=== PATIENT | female | born 1960 | race Caucasian/White ===

== ENCOUNTER → 2016-04-26 | Outpatient (CLI) | payer OTHER ==
[2016-04-26 11:35] LABS: AUTOMATED NEUTROPHIL # 3.5 TH/MM3 (1.8-7.7); BASOPHIL % 0.4 % (0.0-2.0); EOSINOPHIL # 0.1 TH/MM3 (0-0.4); EOSINOPHIL % 2.1 % (0.0-4.0); HEMATOCRIT 43.2 % (35.0-46.0); HEMO FLAGS DIFF FINAL; LYMPH % 32.1 % (9.0-44.0); LYMPHOCYTE # 1.9 TH/MM3 (1.0-4.8); MEAN CELL VOLUME 85.4 FL (80.0-100.0); MEAN CORPUSCULAR HEMOGLOBIN 29.5 PG (27.0-34.0); MEAN CORPUSCULAR HGB CONC 34.5 % (32.0-36.0); MONO % 5.6 % (0.0-8.0); NEUT % 59.8 % (16.0-70.0); PLATELET COUNT 240 TH/MM3 (150-450); RED BLOOD COUNT 5.06 MIL/MM3 (4.00-5.30); RED CELL DISTRIBUTION WIDTH 12.8 % (11.6-17.2); WHITE BLOOD COUNT 5.8 TH/MM3 (4.0-11.0)
[2016-04-26 11:58] LABS: ALT (GPT) 20 U/L (10-53); ANION GAP 7 MEQ/L (5-15); AST (GOT) 17 U/L (15-37); BLOOD UREA NITROGEN 17 MG/DL (7-18); CHLORIDE 106 MEQ/L (98-107); GLOMERULAR FILTRATION RATE 82 ML/MIN (>89); GLUCOSE,FASTING 95 MG/DL (74-99); POTASSIUM 3.8 MEQ/L (3.5-5.1); SODIUM (NA) 142 MEQ/L (136-145)
[2016-04-26 12:08] LABS: ALKALINE PHOSPHATASE 66 U/L (45-117); HDL CHOLESTEROL 50.6 MG/DL (40.0-60.0); LDL CHOLESTEROL 140 MG/DL (0-99); TOTAL BILIRUBIN ADULT 0.7 MG/DL (0.2-1.0)
== END ==
LOC: ELAB 09:08
PROVIDERS: ATTEND Family Medicine
DX: N95.9 Unspecified menopausal and perimenopausal disorder (principal); R42 Dizziness and giddiness; K21.9 Gastro-esophageal reflux disease without esophagitis
CPT/HCPCS: 36415; 80053; 80061; 82652; 84443; 85025

== ENCOUNTER → 2016-10-25 | Outpatient (CLI) | payer OTHER ==
[2016-10-25 13:32] LABS: HEMATOCRIT 43.9 % (35.0-46.0); MEAN CELL VOLUME 86.5 FL (80.0-100.0); MEAN CORPUSCULAR HEMOGLOBIN 29.3 PG (27.0-34.0); MEAN CORPUSCULAR HGB CONC 33.9 % (32.0-36.0); PLATELET COUNT 242 TH/MM3 (150-450); RED BLOOD COUNT 5.07 MIL/MM3 (4.00-5.30); RED CELL DISTRIBUTION WIDTH 12.8 % (11.6-17.2); WHITE BLOOD COUNT 5.8 TH/MM3 (4.0-11.0)
[2016-10-25 13:35] LABS: REVIEW FLAG FINAL
[2016-10-25 13:56] LABS: ALT (GPT) 22 U/L (10-53); ANION GAP 6 MEQ/L (5-15); AST (GOT) 21 U/L (15-37); BICARBONATE 28.4 MEQ/L (21.0-32.0); CHLORIDE 108 MEQ/L (98-107); GLOMERULAR FILTRATION RATE 89 ML/MIN (>89); GLUCOSE,FASTING 84 MG/DL (74-99); POTASSIUM 3.9 MEQ/L (3.5-5.1); SODIUM (NA) 142 MEQ/L (136-145)
[2016-10-25 14:06] LABS: ALKALINE PHOSPHATASE 63 U/L (45-117); BLOOD UREA NITROGEN 15 MG/DL (7-18); HDL CHOLESTEROL 44.6 MG/DL (40.0-60.0); LDL CHOLESTEROL 105 MG/DL (0-99); TOTAL BILIRUBIN ADULT 0.6 MG/DL (0.2-1.0)
== END ==
LOC: PLAB 09:32
PROVIDERS: ATTEND Family Medicine
DX: N95.9 Unspecified menopausal and perimenopausal disorder (principal); R42 Dizziness and giddiness; K21.9 Gastro-esophageal reflux disease without esophagitis; J30.0 Vasomotor rhinitis; E78.2 Mixed hyperlipidemia
CPT/HCPCS: 80053; 80061; 82306; 84443; 85027

== ENCOUNTER → 2016-11-11 | Day surgery (SDC) | payer OTHER ==
[~2016-11-11] MED LIST: LACTATED RINGER'S 1000 ML INJ 1,000 ML ONE; PROPOFOL 500 MG/50 ML BTL IV ONE
--- NOTE | 2016-11-11 09:14 | GIPROC ---
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 PREP QUALITY: good PREP TYPE:Other: ESTIMATED BLOOD LOSS: None CONSENT: The patient understands the risks and benefits of the procedure and understands that these risks include, but are not limited to: sedation, allergic reaction, infection, perforation and/or bleeding. Alternative means of evaluation and treatment include, among others: physical exam, x-rays, and/or surgical intervention. The patient elects to proceed with this endoscopic procedure. medical equipment was checked for proper function. Hand hygiene and appropriate measures for infection prevention was taken. After the risks, benefits and alternatives of the procedure were thoroughly explained, Informed consent was verified, confirmed and timeout was successfully executed by the treatment team. A digital exam revealed external hemorrhoids The EC-3490Li ([id number] endoscope was introduced through the anus and advanced to the cecum, which was identified by both the appendix and ileocecal valve. The instrument was then slowly withdrawn as the colon was fully examined. COLON FINDINGS: Diminutive polyp sigmoid-biopsy. Retroflexed views revealed small internal hemorrhoids The scope was then completely withdrawn from the patient and the procedure terminated. PROCEDURE WITHDRAWAL TIME:6minutes ADVERSE EVENTS: There were no complications. IMPRESSIONS: 1. Diminutive polyp sigmoid-biopsy 2. Retroflexed views revealed small internal hemorrhoids 3. Revealed external hemorrhoids RECOMMENDATIONS: 1. Await biopsy results. Biopsy results will not be ready for 7-10 days. If you don't hear from us in two weeks, call our office for results. 2. Benefiber 2 tsp daily 3. High fiber diet 4. Probiotics from any [facility] or health food store 5. Yearly rectal exams RECALL: Colonoscopy, pending biopsy results Shannon Smith MD eSigned: Shannon Smith MD 11/11/2016 9:13 AM cc: Goldy Barfield and Olga Rowley M.D.
--- NOTE | 2016-11-11 09:19 | GIPROC ---
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 TOPICAL ANESTHETIC: none CONSENT: The patient understands the risks and benefits of the procedure and understands that these risks include, but are not limited to: sedation, allergic reaction, infection, perforation and/or bleeding. Alternative means of evaluation and treatment include, among others: physical exam, x-rays, and/or surgical intervention. The patient elects to proceed with this endoscopic procedure. medical equipment was checked for proper function. Hand hygiene and appropriate measures for infection prevention was taken. After the risks, benefits and alternatives of the procedure were thoroughly explained, Informed consent was verified, confirmed and timeout was successfully executed by the treatment team. The patient was anesthetized with topical anesthesia and the EC-3490Li ([id number]) endoscope was introduced through the mouth and advanced to the second portion of the duodenum. Retroflexed views revealed a hiatal hernia The gastroscope was then slowly withdrawn and removed. Gastritis antrum-biopsy duodenum normal-biopsy irregular z line-biopsy. ADVERSE EVENTS: There were no complications. IMPRESSIONS: 1. Gastritis antrum-biopsy duodenum normal-biopsy irregular z line-biopsy 2. Retroflexed views revealed a hiatal hernia RECOMMENDATIONS: 1. Await biopsy results. Biopsy results will not be ready for 7-10 days. If you don't hear from us in two weeks, call our office for biopsy results. 2. Anti-reflux regimen 3. Continue PPI PATIENT CONDITION: stable DISPOSITION: Home REPEAT EXAM: EGD pending biopsy results Shannon Smith MD eSigned: Shannon Smith MD 11/11/2016 9:19 AM cc: Al Schmitz [facility] Shelbi Rowley M.D.
== END | disposition home or self-care (01) ==
LOC: ESDC 07:15
PROVIDERS: ATTEND Internal Medicine Gastroenterology
DX: K62.5 Hemorrhage of anus and rectum (principal); D12.5 Benign neoplasm of sigmoid colon; K21.9 Gastro-esophageal reflux disease without esophagitis; K64.4 Residual hemorrhoidal skin tags; K64.8 Other hemorrhoids; K29.50 Unspecified chronic gastritis without bleeding; K22.9 Disease of esophagus, unspecified; K44.9 Diaphragmatic hernia without obstruction or gangrene
CPT/HCPCS: 00740; 00810; 43239; 45380; 88305; 88312; J7120

== ENCOUNTER → 2017-05-09 | Outpatient (CLI) | payer OTHER ==
[2017-05-09 08:47] LABS: MEAN CELL VOLUME 87.7 FL (80.0-100.0); MEAN CORPUSCULAR HEMOGLOBIN 29.8 PG (27.0-34.0); MEAN PLATELET VOLUME 7.6 FL (7.0-11.0); PLATELET COUNT 248 TH/MM3 (150-450); RED BLOOD COUNT 5.01 MIL/MM3 (4.00-5.30); RED CELL DISTRIBUTION WIDTH 12.9 % (11.6-17.2); REVIEW FLAG FINAL; WHITE BLOOD COUNT 6.2 TH/MM3 (4.0-11.0)
[2017-05-09 09:22] LABS: ALBUMIN 4.4 GM/DL (3.4-5.0); ANION GAP 6 MEQ/L (5-15); AST (GOT) 17 U/L (15-37); BLOOD UREA NITROGEN 17 MG/DL (7-18); CALCIUM 9.4 MG/DL (8.5-10.1); CHLORIDE 109 MEQ/L (98-107); CREATININE 0.88 MG/DL (0.50-1.00); GLOMERULAR FILTRATION RATE 66 ML/MIN (>89); GLUCOSE,FASTING 103 MG/DL (74-99); SODIUM (NA) 144 MEQ/L (136-145)
[2017-05-09 09:23] LABS: ALT (GPT) 20 U/L (10-53); CHOLESTEROL 185 MG/DL (120-200); TRIGLYCERIDES 176 MG/DL (42-150)
[2017-05-09 09:33] LABS: ALKALINE PHOSPHATASE 75 U/L (45-117); CHOLESTEROL/ HDL RATIO 3.73 RATIO; HDL CHOLESTEROL 49.5 MG/DL (40.0-60.0); LDL CHOLESTEROL 100 MG/DL (0-99); TOTAL BILIRUBIN ADULT 0.6 MG/DL (0.2-1.0)
== END ==
LOC: ELAB 07:44
DX: N95.9 Unspecified menopausal and perimenopausal disorder (principal); R42 Dizziness and giddiness; K21.9 Gastro-esophageal reflux disease without esophagitis; J30.0 Vasomotor rhinitis; E78.2 Mixed hyperlipidemia; M77.11 Lateral epicondylitis, right elbow
CPT/HCPCS: 36415; 80053; 80061; 84443; 85027